=== PATIENT | male | born 1965 | race Caucasian/White ===

== ENCOUNTER 2017-08-03 10:53 | Outpatient (CLI) | payer MEDICAID ==
--- NOTE | ~2017-08-03 | HEMODYNAMI ---
PATIENT:HARDIK CHANDRA MEDICAL RECORD: [id number] : 65 LOCATION:[facility] ADMISSION DATE: 08/03/17 Generatedon:08/03/201714:19 Patient name: HARIDK ORTIZ Patient #: [id number] SSN: : 1965 Date of study: 08/03/2017 Page: Of Hemodynamic Procedure Report Patient Data Patient Demographics Procedure consent was obtained First Name: HARDIK Gender: Male Last Name: LEIGHANN ORTIZ : 1965 [facility] Initial: BRITTNY Age: 51 year(s) Patient #: [id number] Race: Unknown Additional ID: [id number] Contact details Address: [address] [place] [address] RO[address] State: [place] City: [place] Zip code: [address] Admission Admission Data Admission Date: 08/03/2017 Admission Time: 10:53 Lab Results Lab Result Date: 08/03/2017 Lab Result Time: 0:00 Biochemistry Name Units Result Min Max BUN mg/dl 17 --(---*)-- 7 18 Creatinine mg/dl 0.7 --(*---)-- 0.6 1.3 CBC Name Units Result Min Max Hemoglobin g/dl 14.9 --(-*--)-- 13.5 17.5 Procedure Procedure Types Cath Procedure Diagnostic Procedure [facility] w/Coronaries Miscellaneous Procedures Moderate Sedation up to 30 minutes Procedure Description Procedure Date Procedure Date: 08/03/2017 Procedure Start Time: 13:59 Procedure End Time: 14:16 Procedure Staff Name Function Lance Shoemaker MD Performing Physician Dana Parker RT Scrub Loc Valencia RN Nurse Neva Mondragon RT Monitor Indication Angina Procedure Data Cath Procedure Fluoroscopy Diagnostic fluoroscopy Total fluoroscopy Time: 2 time: 2 min min Diagnostic fluoroscopy Total fluoroscopy dose: 691 dose: 691 mGy mGy Contrast Material Contrast Material Type Amount (ml) Isovue 300 58 Entry Location Entry Primary Successful Side Size Upsize Upsize Entry Closure Ramos ccessful Closure Location (Fr) 1 (Fr) 2 (Fr) Remarks Device Remarks Radial Right 6 Fr Mechanical artery Short Compression Estimated blood loss: 5 ml Diagnostic catheters Device Type Used For End Catheter Placement Terumo 5Fr Ron 110cm Multi-vessel catheter Angiography Procedure Complications No complications Procedure Medications Medication Administration Route Dosage Oxygen NC 2 l/min Lidocaine 2% added to field 20 Heparin Flush Bag added to field 2 bags (1000units/500ml NS) 0.9% NaCl I.V. 100 ml/hr Radial Cocktail added to field 1 syringe (Verapomil 2mg/Nitro 400mcg/Heparin 1500units) Versed I.V. 2 mg Fentanyl I.V. 100 mcg Versed I.V. 1 mg Fentanyl I.V. 50 mcg Versed I.V. 1 mg Fentanyl I.V. 50 mcg Radial Cocktail I.A. 1 syringe (Verapomil 2mg/Nitro 400mcg/Heparin 1500units) Versed I.V. 1 mg Versed I.V. 1 mg Hemodynamics Rest HGB: 14.9 (g/dl) Heart Rate: 54 (bpm) Pressure Samples Time Site Value (mmHg) Purpose Heart Use Rate(bpm) 14:09 LV 100/7,11 Snapshot 105 14:09 LV 77/16,13 Snapshot 102 14:09 AO 113/84(96) Pullback 88 Gradients Valve Time Site Site 2 Mean SEP/DFP Peak To Heart Use 1 (mmHg) (sec/min) Peak Rate (mmHg) (bpm) Aortic 14:09 LV AO 22 34 88 113/84(96) Calculations Valve P-P Mean Valve Index Valve Source Name Gradient Area Flow (cm2) Aortic 22 22 Snapshots Pre Cath Intra NCS Post Cath Vital Signs Time Heart Resp SPO2 etCO2 NIBP (mmHg) Rhythm Pain Sedation Rate (ipm) (%) (mmHg) Status Level (bpm) 13:45:50 54 16 100 38.4 114/101(108) NSR 0 (11) 10(A) , No pain 13:50:45 57 15 97 42.9 130/88(105) NSR 0 (11) 10(A) , No pain 13:55:03 53 15 100 48.2 149/84(125) NSR 0 (11) 10(A) , No pain 13:59:27 52 19 100 42.9 145/99(115) NSR 0 (11) 9(A) , No pain 14:03:53 53 16 100 23.3 157/93(117) NSR 0 (11) 9(A) , No pain 14:08:30 72 15 98 45.1 143/76(110) NSR 0 (11) 9(A) , No pain 14:12:54 71 15 98 46.6 147/89(112) NSR 0 (11) 10(A) , No pain 14:17:14 61 52 99 43.6 146/86(115) NSR 0 (11) 10(A) , No pain Medications Time Medication Route Dose Verified Delivered Reason Notes Effectiveness by by 13:46:36 Oxygen NC 2 l/min Lance Buffie used for Navid Valencia RN procedure 13:46:42 Lidocaine 2% added 20ml Lance Lance for local to vial Navid Shoemaker MD anesthetic field 13:46:48 Heparin Flush added 2 bags Lance Lance used for Bag to Navid Shoemaker MD procedure (1000units/500ml field NS) 13:46:56 0.9% NaCl I.V. 100 Lance Buffie Per ml/hr Navid Valencia RN physician 13:50:01 Radial Cocktail added 1 Lance Lance for (Verapomil to syringe Navid Shoemaker MD vasodilation 2mg/Nitro field 400mcg/Heparin 1500units) 13:52:32 Versed I.V. 2 mg Lance Buffie for sedation Navid Valencia RN 13:52:37 Fentanyl I.V. 100 mcg Lance Buffie for sedation Navid Valencia RN 13:58:59 Versed I.V. 1 mg Lance Buffie for sedation Navid Valencia RN 13:59:03 Fentanyl I.V. 50 mcg Lance Buffie for sedation Navid Valencia RN 14:03:12 Versed I.V. 1 mg Lance Buffie for sedation Navid Valencia RN 14:03:15 Fentanyl I.V. 50 mcg Lance Buffie for sedation Navid Valencia RN 14:07:03 Versed I.V. 1 mg Lance Lance for sedation Navid Shoemaker MD 14:07:54 Radial Cocktail I.A. 1 Lance Lance for (Verapomil syringe Navid Shoemaker MD vasodilation 2mg/Nitro 400mcg/Heparin 1500units) 14:11:05 Versed I.V. 1 mg Lance Lucas for sedation Navid Shoemaker MD Procedure Log Time Note 13:25:34 Dana Parker RT(R) sent for patient. Start room use. 13:33:40 Diagnostic Cath Status : Elective 13:34:31 Indication : Angina 13:34:43 Time tracking: Regular hours 13:34:47 Plan of Care:Hemodynamics will remain stable., Cardiac rhythm will remain stable., Comfort level will be maintained., Respiratory function will remain adequate., Patient/ family verbilizes understanding of procedure., Procedure tolerated without complication., Recovers from procedure without complications.. 13:34:52 Patient received from Pre/Post Procedure Room to CCL 2 Alert and oriented. Tansferred to table in Supine position. 13:34:53 Warm blankets applied, and buddy hugger turned on for patient comfort. 13:34:54 Correct patient and procedure confirmed by team. 13:34:56 Signed procedure consent form obtained from patient. 13:34:56 ECG and BP/O2 sat monitors applied to patient. 13:44:15 Baseline sample Acquired. 13:44:15 Vital chart was started 13:45:29 Rhythm: sinus rhythm 13:45:31 Full Disclosure recording started 13:45:45 H&P Date Dictated: 07/20/2017 Within 30 days and on chart., H&P Addendum completed by physician on day of procedure. (MUST COMPLETE FOR ALL OUTPATIENTS). 13:45:47 Pre-procedure instructions explained to patient. 13:45:47 Pre-op teaching completed and patient verbalized understanding. 13:45:48 Family in waiting room. 13:45:50 Patient NPO since Midnight. 13:45:57 Is the patient allergic to Iodine/contrast media? No. 13:45:59 Was the patient premedicated? No 13:46:04 Is patient on blood thinner?No 13:46:21 Patient diabetic? No. 13:46:24 Previous problem with sedation/anesthesia? No ? 13:46:25 Snore? Yes 13:46:26 Sleep apnea? No 13:46:28 Deviated septum? No 13:46:28 Opens mouth fully? Yes 13:46:29 Sticks out tongue? Yes 13:46:31 Airway obstruction? No ? 13:46:34 Dentures? No ? 13:46:36 Oxygen 2 l/min NC was administered by Loc Valencia RN; used for procedure; 13:46:39 Pre procedure: right dorsailis pedis pulse 1+ Palpable, but thready & weak; easily obliterated 13:46:40 Pre procedure: left dorsailis pedis pulse 1+ Palpable, but thready & weak; easily obliterated 13:46:42 Lidocaine 2% 20ml vial added to field was administered by Lance Shoemaker MD; for local anesthetic; 13:46:43 Patient pain scale 0/10 ?. 13:46:48 Heparin Flush Bag (1000units/500ml NS) 2 bags added to field was administered by Lance Shoemaker MD; used for procedure; 13:46:48 IV patent on arrival in left forearm with 0.9% NaCl at O. 13:46:56 0.9% NaCl 100 ml/hr I.V. was administered by Loc Valencia RN; Per physician; 13:50:01 Radial Cocktail (Verapomil 2mg/Nitro 400mcg/Heparin 1500units) 1 syringe added to field was administered by Lance Shoemaker MD; for vasodilation; 13:51:04 Lab Result : BUN 17 mg/dl 13:51:04 Lab Result : Hemoglobin 14.9 g/dl 13:51:04 Lab Result : Creatinine 0.7 mg/dl 13:51:24 Lab results completed and on chart. 13:51:30 Right Radial & Right Groin area was prepped with chlora-prep and draped in sterile fashion 13:51:34 Alarms reviewed by R. N. 13:51:35 Sharps counted by scrub and verified by R.N. 13:51:36 Physician arrived 13:51:37 --------ALL STOP TIME OUT------ 13:51:37 Final Timeout: patient, procedure, and site verified with staff and physician. All members of the team are in agreement. 13:51:39 Right Radial & Right Groin site verified by team. 13:51:42 Physical assessment completed. ASA score P 2 - A patient with mild systemic disease as per Lance Shoemaker MD. 13:51:46 Sedation plan: IV Moderate Sedation Versed, Fentanyl 13:51:49 Use device set Radial Dx 13:51:49 Acist Syringe opened to sterile field. 13:51:50 Medline Cath Pack opened to sterile field. 13:51:50 Bag Decanter opened to sterile field. 13:51:51 Terumo 6Fr Slender Glidesheath opened to sterile field. 13:51:51 St Diego 260cm J .035 wire opened to sterile field. 13:51:51 Acist Hand Control opened to sterile field. 13:51:51 Acist Manifold opened to sterile field. 13:51:52 Tegaderm 4 x 4 opened to sterile field. 13:51:53 MBrace Wrist Support opened to sterile field. 13:52:32 Versed 2 mg I.V. was administered by Loc Valencia RN; for sedation; 13:52:37 Fentanyl 100 mcg I.V. was administered by Loc Valencia RN; for sedation; 13:57:37 Zero performed for pressure channel P1 13:58:59 Versed 1 mg I.V. was administered by Loc Valencia RN; for sedation; 13:59:03 Fentanyl 50 mcg I.V. was administered by Loc Valencia RN; for sedation; 13:59:28 Procedure started. 13:59:36 Local anesthetic to right radial artery with Lidocaine 2% by Lance Shoemaker MD.INITIAL ACCESS ONLY 14:03:02 A 6 Fr Short sheath was inserted into the Right Radial artery 14:03:12 Versed 1 mg I.V. was administered by Loc Valencia RN; for sedation; 14:03:15 Fentanyl 50 mcg I.V. was administered by oLc Valencia RN; for sedation; 14:03:17 A Terumo 5Fr Ron 110cm catheter was advanced over the wire and used for Multi-vessel Angiography. 14:07:03 Versed 1 mg I.V. was administered by Lance Shoemaker MD; for sedation; 14:07:54 Radial Cocktail (Verapomil 2mg/Nitro 400mcg/Heparin 1500units) 1 syringe I.A. was administered by Lance Shoemaker MD; for vasodilation; 14:09:16 LV hemodynamics recorded. 14:09:18 LV gram done using BARNETT 14:09:20 Injector settings: Ml/sec: 5, Volume: 15, 14:09:33 EF : 55 % 14:10:27 RCA angiography performed. 14:10:30 Injector settings: Ml/sec: 3, Volume: 6, 14:11:05 Versed 1 mg I.V. was administered by Lance Shoemaker MD; for sedation; 14:11:20 LCA angiography performed. 14:11:23 Injector settings: Ml/sec: 3, Volume: 6, 14:12:33 Catheter removed. 14:13:33 Terumo TR Band Standard opened to sterile field. 14:13:46 Sheath removed intact; hemostasis achieved with Mechanical Compression to the Right Radial artery. 14:14:40 Procedure ended.(Physican Out) 14:14:51 Fluoroscopy time 02.00 minutes. 14:14:54 Flurop Dose total: 691 14:14:54 Fluoroscopy dose: 691 mGy 14:15:02 Contrast amount:Isovue 300 58ml. 14:15:04 Sharps counted by scrub and verified by R.N. 14:15:06 Insertion/operative site no bleeding no hematoma. 14:15:43 Post right radial artery:unchanged 14:15:44 Post Procedure Pulses reassessed and unchanged 14:15:48 Post procedure rhythm: sinus rhythm 14:15:51 Estimated blood loss: 5 ml 14:15:53 Post procedure instruction explained to patient.Patient verbalizes understanding. 14:15:54 Patient needs reinforcement of post procedure teaching. 14:16:04 Procedure type changed to Cath procedure, Diagnostic procedure, LHC, LHC w/Coronaries, Miscellaneous Procedures, Moderate Sedation up to 30 minutes 14:16:04 Procedure and supply charges have been captured, reviewed, submitted and are correct. 14:16:09 Procedure Complication : No complications 14:16:15 Vital chart was stopped 14:16:15 See physician's report for complete and final results. 14:16:28 Report given to CVICU. 14:16:31 Patient transfered to CVICU with Stretcher. 14:16:33 Procedure ended. 14:16:33 Full Disclosure recording stopped 14:16:37 End room use (Document Last) Device Usage Item Name Manufacture Quantity Catalog Hospital Part Current Minimal Lot# / Number Charge Number Stock Stock Serial# Code Acist Acist 1 [id number] [id number] [id number] [id number] 20 Independent IP Inc Medline Cardinal 1 [id number] 338308 51899 385147 5 Cath Pack Health Bag Microtek 1 [id number] [id number] 44284 413826 5 [employer] Terumo 6Fr Terumo 1 [id number] [id number] 127128 217519 [address] St Diego 1 336512 695990 329617 438928 30 260cm J .035 wire Acist Hand Acist 1 63644 525215 124469 515660 5 Control [employer] Inc Acist Acist 1 96889 446419 488653 672424 5 Manifold Medical [employer] Inc Tegaderm 4 3M 1 [id number] 977199 119834 712667 5 x 4 MBrace Advanced 1 [id number] 062229 45501 523219 5 Wrist Vascular Support Dynamics Terumo 5Fr Terumo 1 51-2738 651788 212971 315515 5 Ron 110cm catheter Terumo TR Terumo 1 [id number] 655191 943624 625572 40 Band Standard Signature Audit [place] Stage Time Signature Unsigned Intra-Procedure 08/03/2017 Neva Mondragon 2:19:22 PM RT(R) Signatures Monitor : Neva Mondragon RT Signature : Date : Time : [facility] [address] [place] [address]
[2017-08-03 11:45] VITALS: BP 160/90; BMI 34.2
[2017-08-03 11:58] LABS: BASOPHILS 0.4 % (0-2); EOSINOPHILS 0.9 % (0-7); HEMATOCRIT 45.1 % (42.0-54.0); HEMOGLOBIN 14.9 g/dL (13.5-17.5); IMMATURE GRANULOCYTES 0.1 % (0-5); LYMPHOCYTES 24.6 % (15-50); MCH 29.9 pg (26.0-34.0); MCV 90.4 fL (80.0-100.0); MONOCYTES 7.5 % (2-11); NEUTROPHILS 66.5 % (40-80); PLATELET COUNT 207 10x3/uL (130-400); RBC 4.99 10x6/uL (4.20-6.10); RDW 11.9 % (11.5-14.5); WBC 7.6 10x3/uL (4.8-10.8)
[2017-08-03 12:08] LABS: CALC OSMOLALITY 282 mosm/kg (275-300); CARBON DIOXIDE 26.1 mmol/L (21.0-32.0); CHLORIDE - SERUM 104 mmol/L (98-107); CREATININE - SERUM 0.7 mg/dL (0.6-1.3); GLUCOSE 104 mg/dL (74-106); POTASSIUM - SERUM 4.5 mmol/L (3.5-5.1); SODIUM 141 mmol/L (136-145); UREA NITROGEN 17 mg/dL (7-18); eGFR NON AFRICAN AMERICAN > 90 mL/min (90-120)
--- NOTE | 2017-08-03 14:35 | NUR ---
1435 RECEIVED PT FROM PUBLIC SAF[employer]Y POLICE. PT IS ALERT, DENIES ANY C/O. TR BAND TO RIGHT WRIST IS CDI, AREA FREE FROM BLEEDING OR HEMATOMA. WRIST IMMOBILIZER IN PLACE. FINGERS WARM, CAP REFILL IS BRISK. PT ABLE TO WIGGLE FINGERS AD SADIE. SINUS BRADYCARDIA ON MONITOR, PT DENIES ANY C/O CHEST PAIN. FRIEND AT BEDSIDE. CALL LIGHT IN REACH.
--- NOTE | 2017-08-03 14:57 | NUR ---
1450 PO FLUIDS SERVED. PT DENIES ANY C/O. NO BLEEDING OR HEMATOMA NOTED AT TR BAND SITE. FAMILY AT BEDSIDE. SINUS BRADYCARDIA ON MONITOR, RATE 55.
--- NOTE | 2017-08-03 15:05 | NUR ---
1505 PT CASEY PO FLUIDS WITH NO C/O NAUSEA. NO BLEEDING OR HEMATOMA NOTED FROM CATH SITE. SINUS BRADYCARDIA, RATE 55. CALL LIGHT IN REACH, FRIEND AT BEDSIDE.
--- NOTE | 2017-08-03 15:30 | NUR ---
1530 PT DENIES ANY C/O. TR BAND CDI, NO BLEEDING OR HEMATOMA NOTED. FINGERS WARM, PULSES PALPABLE.
--- NOTE | 2017-08-03 15:44 | NUR ---
4 CC OF AIR REMOVED FROM TR BAND, NO BLEEDING OR HEMATOMA NOTED.
--- NOTE | 2017-08-03 16:02 | NUR ---
1600 sandwich served. pt denies any c/o. NO BLEEDING OR HEMATOMA NOTED AT CATH SITE.
--- NOTE | 2017-08-03 16:28 | NUR ---
1620 PT HAS TOLERATED SANDWICH WITH NO C/O. HAS VOIDED 600 CC CLEAR YELLOW URINE TO URINAL. ALL AIR HAS BEEN REMOVED FROM TR BAND WITH NO BLEEDING OR HEMATOMA NOTED. IV HAS BEEN DC'D WITH CATH INTACT.
--- NOTE | 2017-08-03 16:49 | NUR ---
1700 2X2 AND TEGADERM TO CATH SITE REMAINS CDI, NO BLEEDING OR HEMATOMA NOTED. WRIST IMMOBILIZER IN PLACE. PT DENIES ANY C/O. HAS DRESSED FOR DC TO HOME. REVIEWED DC INSTRUCTIONS AND PT VERBALIZES UNDERSTANDING. PT ESCORTED TO PRIVATE AUTO VIA WC BY NURSE WITH FRIEND DRIVING HIM HOME.
== END 2017-08-03 17:00 | disposition home or self-care (01) ==
LOC: D.CATH 10:53
PROVIDERS: Internal Medicine Cardiovascular Disease
DX: I20.9 Angina pectoris, unspecified (principal); F41.9 Anxiety disorder, unspecified; K21.9 Gastro-esophageal reflux disease without esophagitis; Z01.812 Encounter for preprocedural laboratory examination